=== PATIENT | female | born 1950 | race Caucasian/White ===

== ENCOUNTER 2019-03-08 10:37 | Inpatient (IN) | payer MEDICARE, MEDICAID ==
[~2019-03-08] VITALS: Ht 167.6 cm; Wt 55.9 kg
--- NOTE | 2019-03-08 01:00 | NUR ---
patient was oxyge saturation was 841L , increased oxygen to 2l and her saturations went up to 92% Addendum: 03/09/19 at 0103 by Silvestre Murphy RN Amended: Links added.
[2019-03-08 11:20] LABS: BASOPHILS # (AUTO) 0.1 X10'3 (0-0.2); BASOPHILS % (AUTO) 0.5 % (0-1); EOSINOPHILS # (AUTO) 0.2 X10'3 (0-0.9); HEMATOCRIT 36.5 % (35.0-45.0); LYMPHOCYTES # (AUTO) 0.7 X10'3 (1.1-4.8); LYMPHOCYTES % (AUTO) 4.8 % (21-51); MEAN CORPUSCULAR HEMOGLOBIN 28.4 PG (27.0-31.0); MEAN CORPUSCULAR VOLUME 86.2 FL (78-98); MEAN PLATELET VOLUME 7.1 FL (7.4-10.4); MONOCYTES % (AUTO) 6.7 % (2-12); NEUTROPHILS # (AUTO) 13.4 X10'3 (1.8-7.7); PLATELET COUNT 397 X10'3 (140-440); RED BLOOD COUNT 4.24 X10'6 (4.20-5.60); RED CELL DISTRIBUTION WIDTH 14.6 % (11.5-14.5); WHITE BLOOD COUNT 15.4 X10'3 (4.5-11.0)
[2019-03-08 11:34] LABS: ALANINE AMINOTRANSFERASE 11 U/L (12-78); ALBUMIN 2.5 G/DL (3.4-5.0); ALBUMIN/GLOBULIN RATIO 0.5 (1.1-1.5); ALKALINE PHOSPHATASE 90 IU/L (46-116); ANION GAP 8 (8-16); ASPARTATE AMINO TRANSFERASE 25 U/L (10-37); BILIRUBIN,TOTAL 0.3 MG/DL (0.1-1.0); BLOOD UREA NITROGEN 18 MG/DL (7-18); CHLORIDE 101 MMOL/L (99-107); CREATININE 0.75 MG/DL (0.40-0.90); POTASSIUM 4.1 MMOL/L (3.5-5.1); SODIUM 138 MMOL/L (135-145); TOTAL CARBON DIOXIDE 29.4 MMOL/L (24-32); TOTAL PROTEIN 7.7 G/DL (6.4-8.2); eGFR 77 ML/MIN
[2019-03-08 11:37] LABS: GLUCOSE 95 MG/DL (70-104)
[2019-03-08] MEDS ORDERED: azithromycin/NS 500mg/250ml 250 ML IV ONE (12:10)
[2019-03-08] MEDS ORDERED: CefTRIAXone/D5W-Rocephin 1gm 50 ML IV ONE (12:10)
--- NOTE | 2019-03-08 12:37 | NUR ---
PT O2 SAT WAS DROPPING INTO THE 80'S. ADMINISTERED 1 LITER OF O2 PT O2 SAT 94%
--- NOTE | 2019-03-08 12:47 | NUR ---
PT TAKES NO MEDICATIONS AT HOME
[2019-03-08] MEDS ORDERED: NO HOME MEDS (12:50)
[2019-03-08] MEDS ORDERED: magnesium 2GM in 50ml NS 50 ML IV PRN (13:05)
[2019-03-08] MEDS ORDERED: magnesium Cl slow-release 64mg tablet PO PRN (13:05)
[2019-03-08] MEDS ORDERED: magnesium hydroxide 30ml (MOM) UD suspension PO PRN (13:05)
[2019-03-08] MEDS ORDERED: potassium CL 10mEq/100ml bag 100 ML IV PRN ×2 (13:05)
[2019-03-08] MEDS ORDERED: ondansetron/PF 4mg/2ml inj IV PRN (13:05)
[2019-03-08] MEDS ORDERED: magnesium 4gm in 100ml NS 100 ML IV PRN (13:05)
[2019-03-08] MEDS ORDERED: acetaminophen 325mg tablet PO PRN (13:05)
[2019-03-08] MEDS ORDERED: potassium Cl 20 mEq SR tablet PO PRN ×2 (13:05)
[2019-03-08] MEDS ORDERED: mag hydrox/Alum hydrox/simeth 30ml oral suspension PO PRN (13:05)
[2019-03-08 14:20] LABS: CLARITY,URINE SLIGHTLY CLOUDY (Clear); COLOR,URINE YELLOW (Yellow); GLUCOSE, URINE NEGATIVE (Neg); KETONES,URINE NEGATIVE (Neg); LEUKOCYTE ESTERASE ,URINE NEGATIVE (Neg); NITRITES, URINE NEGATIVE (Neg); OCCULT BLOOD,URINE NEGATIVE (Neg); PROTEIN,URINE NEGATIVE (Neg); UA COLLECTION TYPE CLN CATCH MIDSTREAM; UROBILINOGEN,URINE 0.2 E.U/dL (0.2-1.0)
[2019-03-08 14:26] LABS: MUCUS STRANDS MANY /LPF (Neg); SQUAMOUS EPITHELIAL CELL,UR MODERATE /LPF (FEW); TRANSITIONAL EPI CELLS,URINE FEW /HPF
[2019-03-08 14:27] LABS: BACTERIA,URINE NONE SEEN /HPF (Neg); RBC,URINE 0-2 /HPF (0-2); WBC,URINE 0-4 /HPF (0-4)
[2019-03-08 16:42] VITALS: BP 126/48
--- NOTE | 2019-03-08 18:56 | NUR ---
Problems reprioritized. Patient report given, questions answered & plan of care reviewed with Silvestre STALEY.
[2019-03-08 20:00] VITALS: BP_SYST 103; BP_SYST 109; BP_DIAS 45; BP_DIAS 54
[2019-03-09] VITALS: BP 109/54
--- NOTE | 2019-03-09 05:26 | NUR ---
0440:Jose Antonio walked patient to bathroom without oxygen. Patient started coughing and became SOB. Portable oxygen was placed on patient and I encouraged her to cough and deep breath. Once patient got back to bed her saturations had dropped down to 48% on 3L. A non rebreather was placed and it slowly went up to 96%. RT was paged and came up, we had her use a blue flutter valve and cogh and deep breath. We then placed her on a venti mask on 50% venti, patient desaturated quickly down to 82%. Non re breather was placed. Respiratory continued to work with patient on coughing, deep breathing and use of flutter valve. Hospitalist was called and came up to evaluate patient. Her saturations were up to 96% on non rebreather at this time. He said if she starts to struggle again, and is over compensating to get an ABG. Patients saturations are holding at 96-97%. Jose Antonio is keeping an eye on her respirations and will notify us if she starts de saturating. She was educated to have her deep breath as well and use her flutter valve. Plan is to try venti mask at 0550 to see how she saturates prior to shift change. Addendum: 03/09/19 at 0548 by Silvestre Murphy RN Patients blood pressure was taken 118/67
[2019-03-09 05:46] LABS: BASOPHILS # (AUTO) 0.1 X10'3 (0-0.2); BASOPHILS % (AUTO) 0.4 % (0-1); EOSINOPHILS # (AUTO) 0.3 X10'3 (0-0.9); EOSINOPHILS % (AUTO) 2.1 % (0-6); HEMATOCRIT 35.5 % (35.0-45.0); LYMPHOCYTES # (AUTO) 1.4 X10'3 (1.1-4.8); LYMPHOCYTES % (AUTO) 10.8 % (21-51); MEAN CORPUSCULAR HGB CONC 33.8 g/dL (33.0-36.5); MEAN CORPUSCULAR VOLUME 85.8 FL (78-98); MEAN PLATELET VOLUME 7.9 FL (7.4-10.4); MONOCYTES # (AUTO) 0.9 X10'3 (0-0.9); MONOCYTES % (AUTO) 7.5 % (2-12); NEUTROPHILS # (AUTO) 9.9 X10'3 (1.8-7.7); NEUTROPHILS % (AUTO) 79.2 % (42-75); PLATELET COUNT 389 X10'3 (140-440); RED BLOOD COUNT 4.14 X10'6 (4.20-5.60); RED CELL DISTRIBUTION WIDTH 14.5 % (11.5-14.5); WHITE BLOOD COUNT 12.5 X10'3 (4.5-11.0)
--- NOTE | 2019-03-09 06:13 | NUR ---
Problems reprioritized. Patient report given, questions answered & plan of care reviewed with LUÍS Michael.
[2019-03-09 06:14] LABS: ALANINE AMINOTRANSFERASE 18 U/L (12-78); ALBUMIN 2.4 G/DL (3.4-5.0); ALBUMIN/GLOBULIN RATIO 0.5 (1.1-1.5); ALKALINE PHOSPHATASE 88 IU/L (46-116); ANION GAP 10 (8-16); ASPARTATE AMINO TRANSFERASE 25 U/L (10-37); BILIRUBIN,TOTAL 0.4 MG/DL (0.1-1.0); BLOOD UREA NITROGEN 12 MG/DL (7-18); BUN/CREATININE RATIO 15.6 (6.6-38.0); CALCIUM 8.8 MG/DL (8.5-10.1); CHLORIDE 103 MMOL/L (99-107); CREATININE 0.77 MG/DL (0.40-0.90); GLUCOSE 102 MG/DL (70-104); MAGNESIUM 2.2 MG/DL (1.5-2.4); POTASSIUM 3.9 MMOL/L (3.5-5.1); SODIUM 138 MMOL/L (135-145); TOTAL CARBON DIOXIDE 25.1 MMOL/L (24-32); TOTAL PROTEIN 7.6 G/DL (6.4-8.2); eGFR 75 ML/MIN
--- NOTE | 2019-03-09 06:31 | NUR ---
Patient in room [facility]. I have received report from Silvestre STALEY and had the opportunity to ask questions and assume patient care.
[2019-03-09 07:00] VITALS: BP 115/64
[2019-03-09] MEDS: K and/or MAG REPLACEMENT MC SCH (08:00)
[2019-03-09] MEDS: azithromycin 250mg tablet PO SCH (08:40)
[2019-03-09] MEDS: CefTRIAXone/D5W-Rocephin 1gm 50 ML IV SCH (08:41)
[2019-03-09] MEDS: enoxaparin 40mg/0.4ml syringe SQ SCH (08:42)
[2019-03-09 09:55] LABS: ABG HCO3 24.6 mmol/L (22.0-26.0); ABG OXYGEN SATURATION 98.3 % (95-98); ABG PH (T) 7.453 (7.350-7.450); ABG PO2 (T) 114.6 mmHg (83-108); ALLEN'S TEST Positive; FCOHb 0.5 % (0.5-1.5); FLOW 15 L/min; FMetHb 0.2 % (0.3-1.12); FO2Hb 97.6 % (94-100); TOTAL HEMOGLOBIN 12.6 G/dl (12.0-16.0)
[2019-03-09] MEDS ORDERED: FLU VACC QS2019-20 36MOS UP/PF 60 MCG/0.5 ML SYRINGE IMVAC ONE (10:00)
[2019-03-09] MEDS ORDERED: pneumococcal 23-VAL P-sac vacc 25 mcg/0.5ml vial IMVAC ONE (10:00)
[2019-03-09 11:00] VITALS: BP 96/53
--- NOTE | 2019-03-09 11:21 | NUR ---
Patient refused Pneumococcal vaccine and requested not to have flu shot yet at this time. Patient stated that she might just had Pneumococcal vaccine less than 5 years ago but not sure the exact date or year she had it
--- NOTE | 2019-03-09 11:53 | NUR ---
Pharmacist notified about patient's elevated WBC and that patient did not want the flu shot today yet
--- NOTE | 2019-03-09 18:17 | NUR ---
Problems reprioritized. Patient report given, questions answered & plan of care reviewed with Barbra STALEY.
[2019-03-09] MEDS: lactobacillus rhamnosus 10,000 MMU CELLS/CAPSULE PO SCH (19:19)
[2019-03-09] MEDS: budesonide 0.5mg/2ml UD nebule IH SCH (19:43)
[2019-03-09 20:00] VITALS: BP 119/59
--- NOTE | 2019-03-09 21:17 | NUR ---
Patient in room [facility]. I have received report from LUÍS Michael and had the opportunity to ask questions and assume patient care. Addendum: 03/09/19 at 2118 by Barbra Reed RN Amended: Links added.
[2019-03-10 00:34] VITALS: BP 107/58
[2019-03-10 05:13] LABS: BASOPHILS # (AUTO) 0.1 X10'3 (0-0.2); BASOPHILS % (AUTO) 0.5 % (0-1); EOSINOPHILS # (AUTO) 0.4 X10'3 (0-0.9); EOSINOPHILS % (AUTO) 3.2 % (0-6); HEMATOCRIT 31.4 % (35.0-45.0); HEMOGLOBIN 10.4 g/dl (12.0-16.0); LYMPHOCYTES # (AUTO) 0.9 X10'3 (1.1-4.8); LYMPHOCYTES % (AUTO) 7.6 % (21-51); MEAN CORPUSCULAR HEMOGLOBIN 28.5 PG (27.0-31.0); MEAN CORPUSCULAR HGB CONC 33.1 g/dL (33.0-36.5); MEAN CORPUSCULAR VOLUME 86.1 FL (78-98); MEAN PLATELET VOLUME 7.5 FL (7.4-10.4); MONOCYTES # (AUTO) 0.9 X10'3 (0-0.9); MONOCYTES % (AUTO) 7.6 % (2-12); NEUTROPHILS # (AUTO) 9.8 X10'3 (1.8-7.7); NEUTROPHILS % (AUTO) 81.1 % (42-75); PLATELET COUNT 336 X10'3 (140-440); RED BLOOD COUNT 3.65 X10'6 (4.20-5.60); RED CELL DISTRIBUTION WIDTH 14.8 % (11.5-14.5); WHITE BLOOD COUNT 12.1 X10'3 (4.5-11.0)
[2019-03-10 05:31] LABS: ALANINE AMINOTRANSFERASE 18 U/L (12-78); ALBUMIN 2.1 G/DL (3.4-5.0); ALBUMIN/GLOBULIN RATIO 0.5 (1.1-1.5); ALKALINE PHOSPHATASE 79 IU/L (46-116); ANION GAP 8 (8-16); ASPARTATE AMINO TRANSFERASE 23 U/L (10-37); BILIRUBIN,TOTAL 0.3 MG/DL (0.1-1.0); BLOOD UREA NITROGEN 16 MG/DL (7-18); BUN/CREATININE RATIO 25.4 (6.6-38.0); CALCIUM 8.3 MG/DL (8.5-10.1); CHLORIDE 105 MMOL/L (99-107); CREATININE 0.63 MG/DL (0.40-0.90); GLUCOSE 99 MG/DL (70-104); MAGNESIUM 2.2 MG/DL (1.5-2.4); POTASSIUM 3.9 MMOL/L (3.5-5.1); SODIUM 140 MMOL/L (135-145); TOTAL CARBON DIOXIDE 27.2 MMOL/L (24-32); TOTAL PROTEIN 6.7 G/DL (6.4-8.2); eGFR > 90 ML/MIN
[2019-03-10 06:00] VITALS: BP 105/59
--- NOTE | 2019-03-10 06:24 | NUR ---
Problems reprioritized. Patient report given, questions answered & plan of care reviewed with LUÍS Amato. Addendum: 03/10/19 at 0624 by Barbra Reed RN Amended: Links added.
--- NOTE | 2019-03-10 06:48 | NUR ---
Patient in room [facility]. I have received report from Barbra STALEY and had the opportunity to ask questions and assume patient care.
[2019-03-10] MEDS: budesonide 0.5mg/2ml UD nebule IH SCH ×2 (07:38→20:30)
[2019-03-10] MEDS: CefTRIAXone/D5W-Rocephin 1gm 50 ML IV SCH (07:40)
[2019-03-10] MEDS: lactobacillus rhamnosus 10,000 MMU CELLS/CAPSULE PO SCH ×2 (07:40→19:14)
[2019-03-10] MEDS: azithromycin 250mg tablet PO SCH (07:40)
[2019-03-10] MEDS: enoxaparin 40mg/0.4ml syringe SQ SCH (07:40)
[2019-03-10] MEDS: K and/or MAG REPLACEMENT MC SCH (08:00)
[2019-03-10 11:00] VITALS: BP 95/50
[2019-03-10] MEDS: ipratropium/albuterol 3ml nebule NEB PRN (16:01)
--- NOTE | 2019-03-10 16:39 | NUR ---
patient very SOB on exertion see PT note. Assisted to BSC x2. Continues with mask at 8L. O2 sats 88-96%. will continue to monitor.
--- NOTE | 2019-03-10 17:09 | NUR ---
Dr Arteaga called about patient being on 8L via mask. Gave order to put patient on NC@6L and reassess. will monitor.
--- NOTE | 2019-03-10 18:22 | NUR ---
patient o2 sats 97% on NC, patient appears stable. Report given to Barbra STALEY
[2019-03-10 20:00] VITALS: BP 103/62
--- NOTE | 2019-03-10 22:36 | NUR ---
Patient in room [facility]. I have received report from LUÍS Amato and had the opportunity to ask questions and assume patient care. Addendum: 03/10/19 at 2237 by Barbra Reed RN Amended: Links added.
[2019-03-11 00:45] VITALS: BP 98/51
[2019-03-11 05:28] LABS: BASOPHILS % (AUTO) 0.3 % (0-1); EOSINOPHILS # (AUTO) 0.5 X10'3 (0-0.9); EOSINOPHILS % (AUTO) 3.9 % (0-6); HEMATOCRIT 31.5 % (35.0-45.0); HEMOGLOBIN 10.4 g/dl (12.0-16.0); MEAN CORPUSCULAR HEMOGLOBIN 28.5 PG (27.0-31.0); MEAN CORPUSCULAR HGB CONC 32.9 g/dL (33.0-36.5); MEAN CORPUSCULAR VOLUME 86.7 FL (78-98); MEAN PLATELET VOLUME 7.4 FL (7.4-10.4); MONOCYTES # (AUTO) 0.9 X10'3 (0-0.9); NEUTROPHILS # (AUTO) 9.9 X10'3 (1.8-7.7); NEUTROPHILS % (AUTO) 80.8 % (42-75); PLATELET COUNT 353 X10'3 (140-440); RED BLOOD COUNT 3.63 X10'6 (4.20-5.60); RED CELL DISTRIBUTION WIDTH 14.5 % (11.5-14.5); WHITE BLOOD COUNT 12.3 X10'3 (4.5-11.0)
[2019-03-11 05:36] LABS: ALANINE AMINOTRANSFERASE 28 U/L (12-78); ALBUMIN 1.9 G/DL (3.4-5.0); ALBUMIN/GLOBULIN RATIO 0.4 (1.1-1.5); ALKALINE PHOSPHATASE 82 IU/L (46-116); ANION GAP 7 (8-16); ASPARTATE AMINO TRANSFERASE 31 U/L (10-37); BILIRUBIN,TOTAL 0.2 MG/DL (0.1-1.0); BLOOD UREA NITROGEN 10 MG/DL (7-18); BUN/CREATININE RATIO 16.9 (6.6-38.0); CALCIUM 8.3 MG/DL (8.5-10.1); CHLORIDE 105 MMOL/L (99-107); CREATININE 0.59 MG/DL (0.40-0.90); GLUCOSE 96 MG/DL (70-104); MAGNESIUM 2.2 MG/DL (1.5-2.4); POTASSIUM 3.9 MMOL/L (3.5-5.1); SODIUM 141 MMOL/L (135-145); TOTAL CARBON DIOXIDE 28.9 MMOL/L (24-32); TOTAL PROTEIN 6.6 G/DL (6.4-8.2); eGFR > 90 ML/MIN
--- NOTE | 2019-03-11 06:15 | NUR ---
Problems reprioritized. Patient report given, questions answered & plan of care reviewed with LUÍS Amato. Addendum: 03/11/19 at 0615 by Barbra Reed RN Amended: Links added.
--- NOTE | 2019-03-11 06:45 | NUR ---
Patient in room [facility]. I have received report from Barbra STALEY and had the opportunity to ask questions and assume patient care.
[2019-03-11 07:00] VITALS: BP 97/59
[2019-03-11] MEDS: azithromycin 250mg tablet PO SCH (07:41)
[2019-03-11] MEDS: CefTRIAXone/D5W-Rocephin 1gm 50 ML IV SCH (07:41)
[2019-03-11] MEDS: lactobacillus rhamnosus 10,000 MMU CELLS/CAPSULE PO SCH ×2 (07:41→20:44)
[2019-03-11] MEDS: enoxaparin 40mg/0.4ml syringe SQ SCH (07:41)
[2019-03-11] MEDS: K and/or MAG REPLACEMENT MC SCH (08:00)
[2019-03-11] MEDS: ipratropium/albuterol 3ml nebule NEB PRN ×2 (08:33→19:56)
[2019-03-11] MEDS: budesonide 0.5mg/2ml UD nebule IH SCH ×2 (08:35→19:55)
[2019-03-11 11:00] VITALS: BP 91/51
--- NOTE | 2019-03-11 17:36 | NUR ---
patient ambulated with PT 60 feet total O2 sats down to 78% observed by PT Trent. see PT note. Patient back at rest on o2/4L o2 sats 92%. will continue to monitor.Note from Rupinder wrapper caser, to say patient will be picked up by cousin to be taken to [facility] in [place] @ 10.30 am 03/12/19.will continue to monitor patient.
[2019-03-11 18:00] VITALS: BP 135/66
--- NOTE | 2019-03-11 18:02 | NUR ---
Problems reprioritized. Patient report given, questions answered & plan of care reviewed with Prudence RN.
--- NOTE | 2019-03-11 18:36 | NUR ---
Patient in room [facility]. I have received report from Lima STALEY and had the opportunity to ask questions and assume patient care. Patient is having dinner and shows no sign of distress.
[2019-03-12] VITALS: BP 98/63
[2019-03-12 05:19] LABS: BASOPHILS # (AUTO) 0.1 X10'3 (0-0.2); BASOPHILS % (AUTO) 0.6 % (0-1); EOSINOPHILS # (AUTO) 0.6 X10'3 (0-0.9); EOSINOPHILS % (AUTO) 5.9 % (0-6); HEMATOCRIT 30.7 % (35.0-45.0); HEMOGLOBIN 10.5 g/dl (12.0-16.0); LYMPHOCYTES # (AUTO) 1.3 X10'3 (1.1-4.8); MEAN CORPUSCULAR HGB CONC 34.2 g/dL (33.0-36.5); MEAN CORPUSCULAR VOLUME 84.6 FL (78-98); MEAN PLATELET VOLUME 7.4 FL (7.4-10.4); MONOCYTES # (AUTO) 0.8 X10'3 (0-0.9); MONOCYTES % (AUTO) 8.2 % (2-12); NEUTROPHILS # (AUTO) 7.1 X10'3 (1.8-7.7); NEUTROPHILS % (AUTO) 72.3 % (42-75); PLATELET COUNT 381 X10'3 (140-440); RED BLOOD COUNT 3.63 X10'6 (4.20-5.60); RED CELL DISTRIBUTION WIDTH 14.8 % (11.5-14.5); WHITE BLOOD COUNT 9.8 X10'3 (4.5-11.0)
[2019-03-12 05:21] LABS: ALANINE AMINOTRANSFERASE 35 U/L (12-78); ALBUMIN 1.9 G/DL (3.4-5.0); ALBUMIN/GLOBULIN RATIO 0.4 (1.1-1.5); ALKALINE PHOSPHATASE 93 IU/L (46-116); ANION GAP 4 (8-16); ASPARTATE AMINO TRANSFERASE 34 U/L (10-37); BILIRUBIN,TOTAL 0.2 MG/DL (0.1-1.0); BLOOD UREA NITROGEN 15 MG/DL (7-18); BUN/CREATININE RATIO 22.4 (6.6-38.0); CALCIUM 8.2 MG/DL (8.5-10.1); CHLORIDE 104 MMOL/L (99-107); CREATININE 0.67 MG/DL (0.40-0.90); GLUCOSE 95 MG/DL (70-104); MAGNESIUM 2.2 MG/DL (1.5-2.4); SODIUM 138 MMOL/L (135-145); TOTAL CARBON DIOXIDE 29.6 MMOL/L (24-32); TOTAL PROTEIN 6.6 G/DL (6.4-8.2); eGFR 88 ML/MIN
--- NOTE | 2019-03-12 06:38 | NUR ---
Problems reprioritized. Patient report given, questions answered & plan of care reviewed with Katherin STALEY.
--- NOTE | 2019-03-12 06:56 | NUR ---
Patient in room [facility]. I have received report from SUNNI STALEY and had the opportunity to ask questions and assume patient care.
[2019-03-12 07:00] VITALS: BP 100/53
[2019-03-12] MEDS: azithromycin 250mg tablet PO SCH (07:06)
[2019-03-12] MEDS: enoxaparin 40mg/0.4ml syringe SQ SCH (07:06)
[2019-03-12] MEDS: lactobacillus rhamnosus 10,000 MMU CELLS/CAPSULE PO SCH (07:06)
[2019-03-12] MEDS: CefTRIAXone/D5W-Rocephin 1gm 50 ML IV SCH (07:07)
[2019-03-12] MEDS: K and/or MAG REPLACEMENT MC SCH (08:00)
[2019-03-12] MEDS: budesonide 0.5mg/2ml UD nebule IH SCH (10:27)
[2019-03-12] MEDS: ipratropium/albuterol 3ml nebule NEB PRN (10:27)
--- NOTE | 2019-03-12 11:53 | NUR ---
PT REFUSED FLU VACCINE EARLIER THIS MORNING. SHE WANTED TO CHECK WITH HER CAREGIVER TO MAKE SURE SHE HAD NOT ALREADY HAD IT. SHE WAS TRANSFERRED TO A SNF TODAY. I EDUCATED THE CAREGIVER WHO PICKED HER UP AND THE FACILITY ACCEPTING HER ABOUT HER FLU VACCINE NEEDING TO BE UPDATED AND POSSIBLY ADMIN. TRE FROM [place] VERBALIZED AN UNDERSTANDING AND SO DID HER CAREGIVER.
== END 2019-03-12 11:30 | DRG 193 ==
LOC: ER 10:38 → ED HOLD 13:12 → SUR 3N 16:09
PROVIDERS: ADMIT Family Medicine; ATTEND Internal Medicine
DX: J18.9 Pneumonia, unspecified organism (principal); J96.01 Acute respiratory failure with hypoxia; Z77.22 Contact with and (suspected) exposure to environmental tobacco smoke (acute) (chronic); J45.909 Unspecified asthma, uncomplicated; D64.9 Anemia, unspecified; Z87.820 Personal history of traumatic brain injury; Z80.1 Family history of malignant neoplasm of trachea, bronchus and lung; Z28.21 Immunization not carried out because of patient refusal; Z82.49 Family history of ischemic heart disease and other diseases of the circulatory system
CPT/HCPCS: 36415; 36600; 71045; 71046; 80053; 81001; 82803; 83605; 83735; 84145; 85018; 85025; 87040; 87070; 87081; 92508; 92616; 93005; 94640; 94667; 94668; 94760; 96365; 97110; 97116; 97530; 99285; G0378; J0456; J0696; J1650; J7626